=== PATIENT | female | born 1965 | race African-American/Black ===

== ENCOUNTER 2018-09-10 10:30 | Inpatient (IN) | payer MEDICARE ==
[~2018-09-10] VITALS: Ht 170.2 cm; Wt 81.6 kg
[~2018-09-10 10:30] MED LIST: AMLO5TAB4 PO; AMYLASE PO; LIPASE PO; OXYC30TA2 PO; PROTEASE PO
--- NOTE | 2018-09-10 10:32 | NUR ---
PT BIBRA FOR ABD PAIN; PT AAOX4, PT AMBULATORY, PT TO BED 1, PT ON MONITOR, VSS, NAD NOTED. PENDING MD VASQUEZ
[2018-09-10] MEDS ORDERED: IV NS 0.9% 1,000 ML BAG IV ONE (11:00)
[2018-09-10] MEDS ORDERED: PANTOPRAZOLE 40 MG VIAL IV ONE (11:00)
[2018-09-10] MEDS ORDERED: ONDANSETRON HCL/PF 4 MG/2 ML VIAL IVP ONE (11:00)
[2018-09-10] MEDS ORDERED: HYDROMORPHONE INJ 2 MG/ML DISP.SYRIN IV ONE (11:00)
[2018-09-10] MEDS ORDERED: PANTOPRAZOLE 40 MG VIAL ONE (11:28)
[2018-09-10] MEDS ORDERED: HYDROMORPHONE 1 MG/1 ML DISP.SYRIN ONE ×2 (11:28→12:13)
[2018-09-10] MEDS ORDERED: ONDANSETRON HCL/PF 4 MG/2 ML VIAL ONE ×2 (11:28→12:13)
[2018-09-10 11:30] LABS: BASOPHILS # (AUTO) 0.1 /CMM (0.0-0.2); BASOPHILS % (AUTO) 0.6 % (0.0-2.0); HEMATOCRIT 45 % (33-45); HEMOGLOBIN 15.4 g/dL (11.5-14.8); LYMPHOCYTES # (AUTO) 0.7 /CMM (0.8-4.8); LYMPHOCYTES % (AUTO) 7.7 % (20.0-44.0); MEAN CORPUSCULAR HGB CONC 34 g/dl (31.0-36.0); MEAN CORPUSCULAR VOLUME 95 fL (82-100); MONOCYTES # (AUTO) 0.3 /CMM (0.1-1.30); MONOCYTES % (AUTO) 3.2 % (2.0-12.0); NEUTROPHILS # (AUTO) 8.2 /CMM (1.8-8.9); NEUTROPHILS % (AUTO) 88.5 % (43.0-81.0); PLATELET COUNT (AUTO) 272 /CMM (150-450); RED BLOOD CELL COUNT(AUTO) 4.73 MIL/uL (4.0-5.2); WHITE BLOOD COUNT (AUTO) 9.2 K/uL (4.3-11.0)
[2018-09-10 11:36] LABS: CALCIUM, SERUM 9.6 mg/dL (8.5-10.1); CREATININE 0.9 mg/dL (0.6-1.3); POTASSIUM 3.1 mmol/L (3.5-5.1)
[2018-09-10 11:42] LABS: ALBUMIN 4.3 g/dL (3.4-5.0); BILIRUBIN,DIRECT 0.2 mg/dL (0.0-0.2); BILIRUBIN,TOTAL 0.7 mg/dL (0.2-1.0); TOTAL PROTEIN, SERUM 8.6 g/dL (6.4-8.2)
--- NOTE | 2018-09-10 12:03 | NUR ---
VERBAL ORDER FROM DR. SOTO; DILAUDID 1MG IVP AND ZOFRAN 4MG IVP
[2018-09-10] MEDS ORDERED: POTASSIUM CL. PREMIX PERIPHER. 100 ML ONE (12:28)
[2018-09-10] MEDS ORDERED: ONDANSETRON HCL/PF - ER 4 MG/2 ML VIAL IV ONE (12:30)
[2018-09-10] MEDS ORDERED: HYDROMORPHONE 1 MG/1 ML DISP.SYRIN IV ONE (12:30)
[2018-09-10] MEDS: POTASSIUM CL. PREMIX PERIPHER. 50 ML IV SCH ×2 (12:42→14:18)
--- NOTE | 2018-09-10 12:54 | NUR ---
called for bed
[2018-09-10] MEDS ORDERED: PIPERACILLIN /TAZOBACTAM 3.375 G in IV D5W 50 ML IV ONE (13:00)
[2018-09-10] MEDS ORDERED: AMLO5TAB9 PO (13:03)
[2018-09-10] MEDS ORDERED: OXYC30TA2 PO (13:03)
[2018-09-10] MEDS ORDERED: PIPERACILLIN /TAZOBACTAM 3.375 G VIAL IV ONE (13:09)
--- NOTE | 2018-09-10 14:34 | NUR ---
REPORT GIVEN TO ANALISA ZHAO FOR YESSY
[2018-09-10] MEDS ORDERED: MAGNESIUM HYDROXIDE 30 ML UDC PO PRN (15:00)
[2018-09-10] MEDS ORDERED: ACETAMINOPHEN 325 MG TABLET PO PRN (15:00)
[2018-09-10] MEDS ORDERED: MAG HYDROX/AL HYDROX/SIMETH 30 ML UDC PO PRN (15:00)
[2018-09-10] MEDS ORDERED: Z GUARD REMEDY 2 OZ OINT TP PRN (15:00)
[2018-09-10] MEDS ORDERED: HYDROMORPHONE INJ 0.5 MG/0.5 ML SYRINGE IV PRN (15:00)
[2018-09-10] MEDS: IV NS 0.9% 1,000 ML IV PRN (15:11)
[2018-09-10] MEDS: ONDANSETRON HCL/PF 4 MG/2 ML VIAL IVP PRN (15:30)
--- NOTE | 2018-09-10 15:40 | NUR ---
MS TECHNICAL SALES ADVISOR NOTES RECEIVED PT FROM ER VIA [facility] WITH 3NURSES ASSIST. PT A/O X4. TOLERATING RA, WITH NO ACUTE RESPIRATORY DISTRESS NOTED. PT STATED 8/10 ABDOMINAL PAIN AT THE MOMENT. RN STATED WILL GIVE THE PRN PAIN MEDICINE SOON MEDICINE COMES AVAILABLE. VITAL SIGNS TAKEN AT 1505 AND RECORDED. PT AMBULATORY WITH BRP; CONTINENT. ALL BELONGINGS WERE IN THE INVENTORY LIST AND SIGNED. RIGHT IJ G20 IN PLACED, FLUSHED WITH NS INTACT AND OPERATIONAL. STARTED NS AT 100ML/HR AT 1511, FLUID NOW INFUSING WELL. PT ON NPO. EMESIS BAG PROVIDED TO PT. PT KEPT COMFORTABLE, CLEAN AND DRY. PT'S BED KEPT IN LOWEST, LOCKED POSITION WITH SR X2. HOB ELEVATED. ADMISSION INFORMATION GATHERED FROM PATIENT. WILL CONTINUE TO MONITOR.
--- NOTE | 2018-09-10 15:50 | NUR ---
MS RN NOTES PT'S SKIN INTACT. PT STATED OK NOT TO HAVE HER BODY CHECKED. EXPLAINED FACILITY PROTOCOL. PT SAID "IT'S OKAY, I DON'T HAVE ANY SKIN ISSUES." WILL ENDORSE TO INCOMING NURSE WELL.
[2018-09-10] MEDS: HYDROMORPHONE 1 MG/1 ML DISP.SYRIN IV PRN ×2 (16:41→21:17)
--- NOTE | 2018-09-10 18:07 | NUR ---
MS RN NOTES PT HAS ELEVATED BP OF 179/106 AND HR 66. MD DUGAN MADE AWARE. NO RESPONSE EARLIER. RECHECKED BP AND HR. RESULTED 185/99 WITH HR 65. MD DUGAN MADE AWARE AGAIN. AWAITING FOR RESPONSE.
--- NOTE | 2018-09-10 18:16 | NUR ---
MS RN NOTES PAGED MD DUGAN DUE TO BP OF PT. AWAITING FOR CALL BACK.
--- NOTE | 2018-09-10 18:27 | NUR ---
MS RN NOTES RECHECKED BP 180/100 MANUALLY BP CUFF USED, HR 68. DRALINE/GODFREY MADE AWARE WELL.
[2018-09-10] MEDS ORDERED: hydrALAZINE HCL 50 MG TABLET PO PRN (18:55)
--- NOTE | 2018-09-10 18:55 | NUR ---
MS RN NOTES TS CALLED BACK. ORDERED HYDRALAZINE 50MG PO NOT IV FOR SBP >160. TS AWARE OF PT'S EPISODES OF NAUSEOUS. WILL ENDORSE TO INCOMING NURSE WELL.
--- NOTE | 2018-09-10 19:13 | NUR ---
MS RN OPENING NOTES: RECEIVED PATIENT RESTING COMFORTABLY IN BED. NO N/V NOTED. ALERT AND ORIENTED X4. NO PAIN AT THIS TIME. REMINDED NPO STILL, VERBALIZED UNDERSTANDING. WAITING FOR THE ORDERS FROM DR GRECO. WILL FOLLOW UP.CALL LIGHT WITHIN REACH.
--- NOTE | 2018-09-10 19:18 | NUR ---
MS RN CLOSING NOTES PT REMAINS RESTING IN BED. PT A/O X4, AMBULATORY. TOLERATING RA, WITH NO ACUTE RESPIRATORY DISTRESS NOTED. HOB ELEVATED. PT STATED 10/10 ABDOMINAL PAIN AT THE MOMENT. RN INFORMED TS REGARDING PT'S REQUEST FOR BREAKTHROUGH PAIN BETWEEN DILAUDID AND HYDRALAZINE PO TO CHANGE TO IV DUE TO PT'S EPISODES OF FEELING NAUSEATED, STILL AWAITING FOR RESPONSE. IVF NS AT 100ML/HR TO RIGHT IJ G20, FLUSHED WITH NS INTACT, FLUID INFUSING WELL. PT ON NPO. EMESIS BAG PROVIDED TO PT. PT KEPT COMFORTABLE, CLEAN AND DRY. PT'S BED KEPT IN LOWEST, LOCKED POSITION WITH SR X2. ENDORSED TO NIGHT NURSE FOR YESSY.
[2018-09-10 20:00] VITALS: BP 181/92
--- NOTE | 2018-09-10 20:02 | NUR ---
RN NOTES: DR GRECO INFORMED OF THE RA=308/92 HR=66, WAITING FOR THE RESPONSE, WILL FOLLOW UP.
--- NOTE | 2018-09-10 20:05 | NUR ---
AMBULATED TO THE BATHROOM, VOIDED. REMINDED FOR STOOL COLLECTION FOR C DIFF, PATIENT VERBALIZED UNDERSTANDING.
[2018-09-10] MEDS: METOCLOPRAMIDE HCL 10 MG/2 ML VIAL IV PRN (20:21)
--- NOTE | 2018-09-10 20:34 | NUR ---
RN NOTES: LIDIA ESPAÑA INFORMED REGARDING THE PATIENT'S BP 181/92, NPO, PATIENT IS STILL VOMITTING. WILL WAIT FO THE RESPONSE. CN SUYAPA AWARE OF THE PATIENT'S STATUS.
[2018-09-10 21:18] VITALS: BP 187/98
[2018-09-11 00:38] VITALS: BP 165/86
[2018-09-11] MEDS: HYDROMORPHONE 1 MG/1 ML DISP.SYRIN IV PRN ×6 (01:41→21:30)
[2018-09-11] MEDS: ONDANSETRON HCL/PF 4 MG/2 ML VIAL IVP PRN ×3 (01:41→15:11)
[2018-09-11] MEDS: METOCLOPRAMIDE HCL 10 MG/2 ML VIAL IV PRN ×3 (06:13→18:27)
[2018-09-11] MEDS: IV NS 0.9% 1,000 ML IV PRN (06:47)
[2018-09-11] MEDS: hydrALAZINE HCL IV 20 MG VIAL IV PRN ×3 (06:47→21:53)
[2018-09-11 07:35] LABS: BASOPHILS % (AUTO) 0.2 % (0.0-2.0); EOSINOPHILS % (AUTO) 0.1 % (0.0-6.0); HEMATOCRIT 49 % (33-45); HEMOGLOBIN 16.4 g/dL (11.5-14.8); LYMPHOCYTES # (AUTO) 1.2 /CMM (0.8-4.8); LYMPHOCYTES % (AUTO) 9.5 % (20.0-44.0); MEAN CORPUSCULAR HGB CONC 34 g/dl (31.0-36.0); MEAN CORPUSCULAR VOLUME 95 fL (82-100); MONOCYTES % (AUTO) 7.5 % (2.0-12.0); NEUTROPHILS # (AUTO) 10.6 /CMM (1.8-8.9); NEUTROPHILS % (AUTO) 82.7 % (43.0-81.0); PLATELET COUNT (AUTO) 257 /CMM (150-450); RED BLOOD CELL COUNT(AUTO) 5.13 MIL/uL (4.0-5.2); WHITE BLOOD COUNT (AUTO) 12.8 K/uL (4.3-11.0)
--- NOTE | 2018-09-11 07:43 | NUR ---
MS RN CLOSING NOTES: PATIENT IS RESTING COMFORTABLY IN BED AT THIS TIME. APRESOLINE 10 MG IVP GIVEN AT 0647 FOR BP 170/104 HR 87. CALL LIGHT WITHIN REACH. AMBULATORY.
[2018-09-11 07:45] LABS: CALCIUM, SERUM 9.5 mg/dL (8.5-10.1); CREATININE 0.9 mg/dL (0.6-1.3); MAGNESIUM 1.8 mg/dL (1.8-2.4); PHOSPHORUS 3.7 mg/dL (2.5-4.9); POTASSIUM 3.4 mmol/L (3.5-5.1)
[2018-09-11 08:00] VITALS: BP 162/89
--- NOTE | 2018-09-11 08:00 | NUR ---
m/s respiratory manager: initial assessment received pt in bed awake, a/ox4; ambulatory. pt remains npo. iv fluids infusing well. voiced no discomfort at this time. instructed to call for assistance. will monitor.
[2018-09-11] MEDS: PANTOPRAZOLE 40 MG VIAL IV SCH (08:24)
--- NOTE | 2018-09-11 08:50 | NUR ---
m/s clip loading machine adjuster: notes pt complaining abdominal pain. pain med not due yet, pt aware and informed her that i will inform her primary doctor. dr. mishra's student here and made aware and will review her profile and will see her as stated.
[2018-09-11] MEDS ORDERED: HYDROMORPHONE INJ 0.5 MG/0.5 ML SYRINGE IV ONE (09:00)
--- NOTE | 2018-09-11 09:19 | NUR ---
m/s electrician chief: notes new order receive to give dilaudid 0.5mg ivp x one. medicated dilaudid 0.5mg ivp by rn due to c/o 8/10 abdominal pain; also given zofran 4mg ivp by rn. instructed to call for assistance. will monitor.
[2018-09-11] MEDS ORDERED: HYDROMORPHONE 1 MG/1 ML DISP.SYRIN IV ONE (09:30)
--- NOTE | 2018-09-11 09:49 | NUR ---
m/s help desk associate: notes pt verbalized some relief 08/12 at this time. at bedside. instructed to call for assistance. will monitor.
[2018-09-11] MEDS: POTASSIUM CL. PREMIX PERIPHER. 50 ML IV SCH ×2 (10:03→11:26)
--- NOTE | 2018-09-11 11:00 | NUR ---
m/s novelty candy maker: notes f/u made to gi, left message to dr. arechiga re: consult. pt made aware. pt remains npo. will continue to monitor.
--- NOTE | 2018-09-11 12:08 | NUR ---
m/s information manager: notes new order receive to give dilaudid 0.5mg ivp x one. medicated dilaudid 0.5mg ivp by rn due to c/o 8/10 abdominal pain; also given reglan 10mg ivp by rn. instructed to call for assistance. will monitor.
--- NOTE | 2018-09-11 13:00 | NUR ---
m/s tool chaser: notes pt sounds asleep. no distress noted. call light within reach.
--- NOTE | 2018-09-11 15:11 | NUR ---
m/s industrial manufacturing technician: notes new order receive to give dilaudid 0.5mg ivp x one. medicated dilaudid 0.5mg ivp by rn due to c/o 9/10 abdominal pain; also given zofran 4mg ivp by rn. instructed to call for assistance. will monitor.
--- NOTE | 2018-09-11 15:41 | NUR ---
m/s python java developer: notes pt in bed with eyes close. voice no discomfort. noted with elevated b/p. will give prn hydralazine due to b/p elevated by rn. will continue to monitor.
[2018-09-11 16:00] VITALS: BP_SYST 132; BP_SYST 172; BP_DIAS 100; BP_DIAS 66
[2018-09-11 17:00] VITALS: BP 157/90
--- NOTE | 2018-09-11 18:05 | NUR ---
m/s glass pulverizer equipment operator: notes in bed with eyes close. no distress noted. needs attended. call light within reach. will continue to monitor.
--- NOTE | 2018-09-11 18:27 | NUR ---
m/s sabine: notes new order receive to give dilaudid 0.5mg ivp x one. medicated dilaudid 0.5mg ivp by rn due to c/o 01/12 abdominal pain; also given reglan 10mg ivp by rn. instructed to call for assistance. will monitor. needs attended. Addendum: 09/11/18 at 1831 by BERENICE ANDERSON LVN no loose stool or diarrhea reported on shift.
--- NOTE | 2018-09-11 18:57 | NUR ---
m/s cherry sorter: notes pt resting quietly with call light within reach.
--- NOTE | 2018-09-11 19:00 | NUR ---
m/s ambulatory care: notes report given augustina (spike) for continuity of care.
--- NOTE | 2018-09-11 19:20 | NUR ---
RN NOTES: RECEIVED LYING COMFORTABLY IN BED,A/OX4, LOOKS SLEEPY,KEPT IN COMFORTABLE POSITION, IN SEMI FOWLERS POSITION, ON RA,IV SITE-IJ G#20 WITH ONGOING NS AT 100CC/HR,ORIENTED TO UNIT AND INCOMING STAFF. FALL, SAFETY AND ASPIRATION PRECAUTION OBSERVED, BED LOW AND LOCKED, CALL LIGHT WITHIN EASY REACH.
[2018-09-11 20:00] VITALS: BP 160/97
--- NOTE | 2018-09-11 20:12 | NUR ---
RN NOTES: CALLS AND NEEDS ATTENDED, WET DRY LIPS WITH DROP OF WATER USING TOOTH SPONGE, GIVEN WARM BLANKET, KEPT COMFORTABLE IN BED,CALL LIGHT WITHIN EASY REACH.
[2018-09-11 20:22] VITALS: BP 160/67
--- NOTE | 2018-09-11 21:31 | NUR ---
RN NOTES: AWAKE, ASSISTED TO BR, WHEN COMING BACK TO BED PAIN 10/10, REQUEST FOR PAIN MEDS, BP-174/103 MO-106, GIVEN DILAUDID FOR PAIN FIRST, THEN PRN ANTIHYPERTENSIVE WILL FOLLOW.NON PHARMACOLOGIC INTERVENTION RENDERED, WARM BLANKET, GIVEN, PLACED IN COMFORTABLE POSITION,CALL LIGHT WITHIN EASY REACH.
--- NOTE | 2018-09-11 21:54 | NUR ---
RN NOTES: RECHECKED BP-173/101 TN-103, APRESOLINE PRN FOR SBP>160 GIVEN, KEPT ON CLOSE WATCH. CALL LIGHT WITHIN EASY REACH.
--- NOTE | 2018-09-11 22:09 | NUR ---
RN NOTES: CHECK AT FREQUENT INTERVALS, NO HEADACHE, NO COMPLAINTS OF NAUSEA AND VOMITING, ABLE TO SLEEP IN BETWEEN, FOR CLOSE MONITORING, CALL LIGHT WITHIN EASY REACH.
--- NOTE | 2018-09-11 22:53 | NUR ---
RN NOTES: ASSISTED GOING TO THE BATHROOM,PAIN IS LESSER, NOT NAUSEATED,LATEST BP OMOHVYW=173/87.CALL LIGHT KEPT WITHIN EASY REACH, KEPT ON COMFORTABLE POSITION.
[2018-09-12] MEDS: IV NS 0.9% 1,000 ML IV PRN (00:34)
--- NOTE | 2018-09-12 00:36 | NUR ---
RN NOTES: IVF CONSUMED, NEW BAG OF NS AT 100 ML/HR STARTED AT 0034 VIA INFUSION PUMP, ASLEEP. KEPT ON CLOSE WATCH.
[2018-09-12] MEDS: HYDROMORPHONE 1 MG/1 ML DISP.SYRIN IV PRN ×7 (02:21→23:53)
--- NOTE | 2018-09-12 02:37 | NUR ---
RN NOTES: AT 0221 SHE WAS AWAKE, ASSISTED TO BATHROOM, COMING BACK FROM BATHROOM SHE REQUEST FOR HER PAIN MEDICATION, PAIN 10/10, PAIN MEDICATION GIVEN. NON PHARMACOLOGIC INTERVENTION RENDERED. NOT NAUSEATED.
[2018-09-12] MEDS: METOCLOPRAMIDE HCL 10 MG/2 ML VIAL IV PRN ×3 (05:46→22:08)
--- NOTE | 2018-09-12 05:48 | NUR ---
RN NOTES: AWAKE FEELING NAUSEATED, REQUEST FOR REGLAN PRN MEDICATION, GIVEN, COMFORT MEASURES RENDERED.CALL LIGHT WITHIN EASY REACH.
--- NOTE | 2018-09-12 06:07 | NUR ---
RN NOTES: AWAKE, COMPLAINED OF PAIN UPON GETTING UP, REQUEST FOR HER PAIN MEDICATION,NON PHARMACOLOGIC INTERVENTION IS INEFFECTIVE, PAIN MEDS GIVEN PER PATIENT REQUEST.CALL LIGHT KEPT WITHIN EASY REACH. Addendum: 09/12/18 at 0720 by CLAUDIA SÁNCHEZ RN ADDED NOTES: NO VOMITING, ONLY FEELING NAUSEATED, CONTINUE TO BE MONITORED.
[2018-09-12 07:17] LABS: BASOPHILS % (AUTO) 0.3 % (0.0-2.0); EOSINOPHILS % (AUTO) 0.1 % (0.0-6.0); HEMATOCRIT 50 % (33-45); HEMOGLOBIN 16.8 g/dL (11.5-14.8); LYMPHOCYTES # (AUTO) 1.1 /CMM (0.8-4.8); LYMPHOCYTES % (AUTO) 11.2 % (20.0-44.0); MEAN CORPUSCULAR HGB CONC 34 g/dl (31.0-36.0); MEAN CORPUSCULAR VOLUME 96 fL (82-100); MONOCYTES # (AUTO) 0.8 /CMM (0.1-1.30); MONOCYTES % (AUTO) 7.8 % (2.0-12.0); NEUTROPHILS # (AUTO) 8.2 /CMM (1.8-8.9); NEUTROPHILS % (AUTO) 80.6 % (43.0-81.0); PLATELET COUNT (AUTO) 244 /CMM (150-450); RED BLOOD CELL COUNT(AUTO) 5.25 MIL/uL (4.0-5.2); WHITE BLOOD COUNT (AUTO) 10.2 K/uL (4.3-11.0)
[2018-09-12 07:29] LABS: CALCIUM, SERUM 9.7 mg/dL (8.5-10.1); CREATININE 0.8 mg/dL (0.6-1.3); POTASSIUM 3.9 mmol/L (3.5-5.1)
--- NOTE | 2018-09-12 07:50 | NUR ---
RN NOTES PATIENT A/OX4, NO SOB NOTED, RESTING COMFORTABLY, PIV PATENT AND INTACT, KEPT PATIENT COMFORTABLE, NEEDS ATTENDED AND MET, CALL LIGHT IWTHIN REACH WILL CONTINUE TO MONITOR.
[2018-09-12 08:00] VITALS: BP 162/100
[2018-09-12] MEDS: PANTOPRAZOLE 40 MG VIAL IV SCH (08:43)
[2018-09-12] MEDS: hydrALAZINE HCL IV 20 MG VIAL IV PRN (08:43)
[2018-09-12] MEDS: ONDANSETRON HCL/PF 4 MG/2 ML VIAL IVP PRN ×2 (08:52→20:19)
[2018-09-12 16:00] VITALS: BP 152/94
--- NOTE | 2018-09-12 18:31 | NUR ---
RN NOTES PATIENT A/OX4, BREATHING EVEN AND UNLABORED, NO SOB NOTED, PATIENT STILL C/O ABDOMINAL PAIN, INTERMITTENTLY. PATIENT TOLERATED CLEAR LIQUID DIET, NO DISTRESS NOTED, CALL LIGHT WITHIN REACH, WILL ENDORSE TO BURNER TECHNICIAN FOR YESSY.
--- NOTE | 2018-09-12 19:15 | NUR ---
MS RN NOTES RECEIVED PT IN BED AWAKE AND ABLE TO MAKE NEEDS KNOWN. PT A/O X4. RESPIRATIONS EVEN AND UNLABORED WITH NO S/S OF ACUTE DISTRESS OR SOB NOTED. SAFETY MEASURES IN PLACE WITH BED IN LOWEST LOCKED POSITION WITH SIDE RAILS UP X2. PT WITH IV IJ G#20 RUNNING NS AT 100CC/HR. CALL LIGHT WITHIN REACH. WILL CONTINUE TO MONITOR.
[2018-09-12 20:00] VITALS: BP 133/91
[2018-09-13] MEDS: ONDANSETRON HCL/PF 4 MG/2 ML VIAL IVP PRN ×3 (03:05→15:56)
[2018-09-13] MEDS: IV NS 0.9% 1,000 ML IV PRN (03:09)
[2018-09-13] MEDS: HYDROMORPHONE 1 MG/1 ML DISP.SYRIN IV PRN ×7 (03:18→22:09)
[2018-09-13] MEDS: METOCLOPRAMIDE HCL 10 MG/2 ML VIAL IV PRN ×2 (06:43→18:45)
--- NOTE | 2018-09-13 07:00 | NUR ---
MS RN NOTES PT IN BED AWAKE AND ABLE TO MAKE NEEDS KNOWN. PT A/O X4. RESPIRATIONS EVEN AND UNLABORED WITH NO S/S OF ACUTE DISTRESS OR SOB NOTED THROUGHOUT SHIFT. PT WITH EPISODES OF N/V, REGLAN AND ZOFRAN GIVEN AT NEEDED TIMES. 800 CC EMESIS. DILAUDID GIVEN FOR PAIN. SAFETY MEASURES IN PLACE WITH BED IN LOWEST LOCKED POSITION WITH SIDE RAILS UP X2. PT WITH IV IJ G#20 RUNNING NS AT 100CC/HR. CALL LIGHT WITHIN REACH. WILL ENDORSE TO ONCOMING NURSE FOR YESSY.
--- NOTE | 2018-09-13 07:30 | NUR ---
RN MS NOTES PT IN BED, AWAKE, ALERT AND ORIENTED, WITH COMPLAINT OF ABDOMINAL PAIN 4/10 AT THIS TIME, NO COMPLAINT OF NAUSEA, ABLE TO WALK WITH STEADY GAIT, IV FLUIDS INFUSING WELL, CALL LIGHT WITHIN REACH, NEEDS ATTENDED.
[2018-09-13 08:00] VITALS: BP 147/100
[2018-09-13] MEDS: PANTOPRAZOLE 40 MG VIAL IV SCH (08:09)
--- NOTE | 2018-09-13 11:59 | NUR ---
MS RN NOTE REPORT GIVEN TO CECE CLAROS FOR YESSY.
[2018-09-13] MEDS: METRONIDAZOLE 500MG/ NS 100ML 500 MG in PREMIX 1 EA IV SCH ×3 (12:53→23:02)
--- NOTE | 2018-09-13 13:00 | NUR ---
RN MS NOTES PT AWAKE, ALERT AND ORIENTED, WALKING WITH SLOW AND STEADY GAIT ALONG THE HALLWAY, PAIN MEDICATION GIVEN ORDERED, SEEN BY DIXIE NUCLEAR FUELS RESEARCH ENGINEER, PLAN OF CARE DISCUSSED WITH PT, VERBALIZED UNDERSTANDING.
[2018-09-13 16:00] VITALS: BP 150/96
--- NOTE | 2018-09-13 18:23 | NUR ---
RN MS NOTES PT IN BED, AWAKE, ALERT AND ORIENTED, PAIN MEDICATION GIVEN ORDERED, WITH EPISODES OF NAUSEA AND VOMITING DURING THE SHIFT, PT ABLE TO AMBULATE ALONG THE HALLWAY TOLERATED, IV FLUIDS INFUSING WELL, CALL LIGHT WITHIN REACH, NEEDS ATTENDED.
--- NOTE | 2018-09-13 19:10 | NUR ---
MS RN NOTES RECEIVED PT IN BED AWAKE AND ABLE TO MAKE NEEDS KNOWN. PT A/O X4. RESPIRATIONS EVEN AND UNLABORED WITH NO S/S OF ACUTE DISTRESS OR SOB NOTED. PT ON FULL LIQUID DIET. SAFETY MEASURES IN PLACE WITH BED IN LOWEST LOCKED POSITION WITH SIDE RAILS UP X2. PT WITH IV IJ G#20 RUNNING NS AT 100CC/HR. CALL LIGHT WITHIN REACH. WILL CONTINUE TO MONITOR.
[2018-09-13] MEDS: hydrALAZINE HCL IV 20 MG VIAL IV PRN (21:07)
--- NOTE | 2018-09-13 21:07 | NUR ---
MS RN NOTES PT PLACED ON TELE MONITOR AND GIVEN HYDRALAZINE 10MG FOR SBP >160 @165/100.
[2018-09-14] MEDS: IV NS 0.9% 1,000 ML IV PRN (01:55)
[2018-09-14] MEDS: HYDROMORPHONE 1 MG/1 ML DISP.SYRIN IV PRN ×3 (01:55→12:06)
[2018-09-14] MEDS: METRONIDAZOLE 500MG/ NS 100ML 500 MG in PREMIX 1 EA IV SCH ×2 (05:07→11:27)
--- NOTE | 2018-09-14 06:52 | NUR ---
MS RN NOTES PT IN BED SLEEPING BUT EASILY AWOKEN VERBALLY OR BY TOUCH. PT A/O X4 AND ABLE TO MAKE NEEDS KNOWN. RESPIRATIONS EVEN AND UNLABORED WITH NO S/S OF ACUTE DISTRESS OR SOB NOTED THROUGHOUT SHIFT. PT ON FULL LIQUID DIET. SAFETY MEASURES IN PLACE WITH BED IN LOWEST LOCKED POSITION WITH SIDE RAILS UP X2. PT WITH IV IJ G#20 RUNNING NS AT 100CC/HR. PT POSSIBLE D/C IN IN AM. CALL LIGHT WITHIN REACH. WILL ENDORSE TO ONCOMING NURSE FOR YESSY.
[2018-09-14 08:00] VITALS: BP 140/87
[2018-09-14] MEDS: PANTOPRAZOLE 40 MG VIAL IV SCH (08:10)
--- NOTE | 2018-09-14 14:05 | NUR ---
PATIENT CLEARED FOR D/C TO HOME BY DNP. PATIENT ALERT AND ORIENTED X4 , BREATHING UNLABORED AND EVEN ON ROOM AIR , NO DISTRESS NOTED, NO COMPLAIN OF PAIN AT THIS TIME, NO N/V. [facility] ARE STABLE AND WITHIN BASELINE, AFEBRILE. PATIENT RECEIVED PRESCRIPTIONS FOR NEW MEDS, EDUCATION AND DISCHARGE INSTRUCTIONS; PATIENT VERBALIZED UNDERSTANDING AND WILL F/U WITH PRIMARY CARE PROVIDER. IV LINE REMOVED, ID WRIST BAND REMOVED. PATIENT SIGNED D/C INSTRUCTIONS AND VALUABLE FORM , ALL BELONGINGS WITH THE PATIENT
== END 2018-09-14 14:05 | disposition home or self-care (01) | DRG 373 ==
LOC: ER 10:32 → MED 14:21
PROVIDERS: ADMIT Nurse Practitioner Acute Care; ATTEND Nurse Practitioner Acute Care
DX: A04.9 Bacterial intestinal infection, unspecified (principal); E87.6 Hypokalemia; I10 Essential (primary) hypertension; K57.30 Diverticulosis of large intestine without perforation or abscess without bleeding; K59.00 Constipation, unspecified; Z90.49 Acquired absence of other specified parts of digestive tract; F10.21 Alcohol dependence, in remission; D72.829 Elevated white blood cell count, unspecified
CPT/HCPCS: 36415; 80048-TC; 80051-TC; 80061-TC; 80076-TC; 83690-TC; 83735-TC; 84100-TC; 85025-TC; 85730-TC; 86140-TC; 87081-TC; A4216; C9113; G0378; J0360; J1170; J2405; J2543; J2765; J3480; J3490; J7030; J7040; J7060